=== PATIENT | female | born 1965 | race Hispanic/Latino ===

== ENCOUNTER 2017-07-04 10:01 | Outpatient (CLI) | payer BC ==
[2017-07-04 11:43] LABS: #Eosinphils 0.1 thou/uL (0.0-0.7); #Lymphocytes 3.3 thou/uL (1.20-3.40); #Monocytes 0.6 thou/uL (0.11-0.59); #Neutrophils 7.5 thou/uL (1.40-6.50); %Basophils 0.1 % (0.0-1.0); %Eosinophils 0.5 % (0.0-10.0); %Lymphocytes 28.6 % (21.0-51.0); %Monocytes 5.3 % (0.0-10.0); %Neutrophils 65.6 % (42.0-75.0); Hemoglobin 13.7 g/dL (12.0-16.0); Mean Corpuscular HGB CONC 33.6 g/dL (32.0-36.0); Mean Corpuscular Volume 92.4 fl (81.0-99.0); Mean Platelet Volume 7.3 fL (7.4-10.4); Platelet Count 314 thou/uL (130-400); RBC Distribution Width 12.6 % (11.5-14.5); Red Blood Cell (RBC) Count 4.43 mill/uL (4.20-5.40); White Blood Cell (WBC) Count 11.5 thou/uL (4.8-10.8)
[2017-07-04 12:13] LABS: Anion Gap 13 mmol/L (10-20); BUN (Urea Nitrogen) 6 mg/dL (7.0-18.7); Calc. Creatinine Clearance 0 mL/min (70-130); Calcium 9.8 mg/dL (7.8-10.44); Carbon Dioxide 27 mmol/L (22-29); Chloride 100 mmol/L (98-107); Estimated GFR-MDRD Greater than 90; Glucose 97 mg/dL (70-105); Potassium 3.3 mmol/L (3.5-5.1); Sodium 137 mmol/L (136-145)
--- NOTE | 2017-07-04 22:16 | EKG ---
Test Reason : Blood Pressure : / mmHG Vent. Rate : 080 BPM Atrial Rate : 080 BPM P-R Int : 144 ms QRS Dur : 090 ms QT Int : 418 ms P-R-T Axes : 053 070 061 degrees QTc Int : 482 ms Normal sinus rhythm Prolonged QT Abnormal ECG Confirmed by SOUMYA DICKSON, DR. [place] ([id number]) on 07/04/2017 10:16:19 PM Referred By: DANNY Confirmed By:DR. Vahid DOOLEY MD
== END 2017-07-04 10:02 | disposition home or self-care (01) ==
LOC: LABBT 10:01
PROVIDERS: ATTEND Specialist
DX: Z01.818 Encounter for other preprocedural examination (principal); K64.4 Residual hemorrhoidal skin tags; K60.2 Anal fissure, unspecified; R94.31 Abnormal electrocardiogram [ECG] [EKG]
CPT/HCPCS: 80048; 85025; 93005; 93010

== ENCOUNTER 2017-07-08 06:58 | Day surgery (SDC) | payer BC ==
[2017-07-04 10:28] VITALS: BMI 36.1
[2017-07-08] MEDS ORDERED: Ketorolac Tromethamine 30 MG/ML VIAL ONE (07:40)
[2017-07-08] MEDS ORDERED: Sodium Chloride 0.9% 100 ML ONE ×2 (07:41→07:43)
[2017-07-08] MEDS ORDERED: cefOXitin 2 GM VIAL ONE (07:41)
[2017-07-08] MEDS ORDERED: Midazolam HCl 2 mg/2 ml Vial ONE (08:39)
[2017-07-08] MEDS ORDERED: Fentanyl 100 MCG/2 ML VIAL ONE ×3 (08:39→12:11)
[2017-07-08] MEDS ORDERED: Bupivacaine/Epinephrine 0.25% 30 ML VIAL ONE (09:39)
[2017-07-08] MEDS ORDERED: Lidocaine 2% Jelly 5 ML TUBE ONE (11:33)
[2017-07-08] MEDS ORDERED: HYDROcodone/Acetaminophen 5/325 mg Tablet ONE (13:28)
[2017-07-08] MEDS ORDERED: PROPOFOL 200 MG/20 ML VIAL ONE (13:29)
[2017-07-08] MEDS ORDERED: Ondansetron HCl/PF 4 MG/2 ML Vial ONE (13:29)
[2017-07-08] MEDS ORDERED: diphenhydrAMINE 50 MG/ML VIAL ONE (13:29)
[2017-07-08] MEDS ORDERED: Glycopyrrolate 0.2 MG/ML 5 ML SYRINGE ONE (13:29)
[2017-07-08] MEDS ORDERED: Metoclopramide HCl 10 MG/2 ML VIAL ONE (13:29)
[2017-07-08] MEDS ORDERED: Lidocaine 1% PF 5 ML VIAL ONE (13:29)
--- NOTE | 2017-07-08 18:18 | OP ---
DATE OF PROCEDURE: 07/08/2017 PREOPERATIVE DIAGNOSIS: Anal pain with suspected anal fissure. POSTOPERATIVE DIAGNOSES: Anal pain with suspected anal fissure with significant external sentinel pi le and internal hemorrhoid at the same location. OPERATION PERFORMED: Rectal examination under anesthesia, left lateral internal sphincterotomy, fiss urectomy in continuity with the external hemorrhoidectomy and internal hemorrhoidectomy. SURGEON: Don Vance M.D. ANESTHESIA: General endotracheal. INDICATIONS: The patient is a 52-year-old female. She presents with a several month histor y of severe anal pain. She cannot tolerate a rectal examination. I suspected anal fissure. She carlos led a course of conservative management with medication. She is taken to the operating at this time for examination under anesthesia and planned sphincterotomy. OPERATIVE PROCEDURE IN DETAIL: Informed consent was obtained. The patient was taken to the operatin g room where general endotracheal anesthesia obtained with the patient in supine position. She was p laced in dorsal lithotomy using candy cane stirrups. Perianal area was prepped with Jw and dr mobley in sterile fashion. Initial examination revealed an anal fissure in the posterior midline. The re was an obvious sentinel pile external to this. Interestingly, there was a prolapsing internal hem orrhoid at approximately the same radian. There was no evidence of other anorectal pathology. A 4-quadrant intersphincteric block was placed with 0.25% Marcaine with epinephrine. Additional loca l anesthetic was infiltrated in the left anus and the area of planned incision and in the posterior m idline. Attention was then turned to the left side. A small cutaneous incision was created over the palpable internal sphincter. The internal sphincter was isolated with the hemostats and divided wit h electrocautery. Hemostasis obtained with electrocautery. The wound was then closed with a running locking suture of 3-0 Vicryl. Attention was turned to the posterior midline. The sentinel pile was excised in continuity with the friable skin around the fissure. This was done in continuity with the prolapsing internal hemorrhoid . Hemostasis obtained with electrocautery. The base of the fissure was superficially debrided with the scalpel. The wound was then closed in a radial fashion with a running locking suture of 3-0 Vicr yl. Additional local anesthetic was infiltrated. A Gelfoam sponge with lidocaine jelly was placed within the wound. Dry gauze was placed external along with mesh pants. There were no complications. The patient tolerated the procedure well and was taken to recovery room in stable condition.
== END 2017-07-08 14:20 | disposition home or self-care (01) ==
LOC: SDC 06:58
PROVIDERS: ATTEND Specialist
PROC: 06BY0ZC Excision of Hemorrhoidal Plexus, Open Approach (ICD-10-PCS; principal; 2017-07-08)
PROC: 0DBQ0ZZ Excision of Anus, Open Approach (ICD-10-PCS; principal; 2017-07-08)
DX: K60.2 Anal fissure, unspecified (principal); K64.4 Residual hemorrhoidal skin tags; K64.8 Other hemorrhoids; E10.9 Type 1 diabetes mellitus without complications; E78.00 Pure hypercholesterolemia, unspecified; I10 Essential (primary) hypertension; Z79.84 Long term (current) use of oral hypoglycemic drugs; Z79.899 Other long term (current) drug therapy; Z91.041 Radiographic dye allergy status
CPT/HCPCS: 88305; 96374; J0131; J0694; J1200; J1885; J2001; J2250; J2405; J2704; J2765; J3010; J7050